=== PATIENT | male | born 1985 | race Caucasian/White ===

== ENCOUNTER → 2024-01-21 15:53 | Outpatient (REF) | payer OTHER, SELFPAY | LOC: RCS 15:53 | PROVIDERS: ATTENDING PHYSICIAN Internal Medicine Cardiovascular Disease; FAMILY PHYSICIAN Nurse Practitioner | DX: I48.0 Paroxysmal atrial fibrillation (principal); R00.2 Palpitations; R00.0 Tachycardia, unspecified; R55 Syncope and collapse | CPT/HCPCS: 93306 ==